=== PATIENT | male | born 2000 | race Caucasian/White ===

== ENCOUNTER → 2020-09-27 09:07 | Outpatient (BNVA) | payer OTHER, SELFPAY | PROVIDERS: Family Provider Family Medicine; PCP Family Medicine; Visit Provider Psychiatry & Neurology Psychiatry | DX: Z03.89 Encounter for observation for other suspected diseases and conditions ruled out (principal); Z79.899 Other long term (current) drug therapy; F31.9 Bipolar disorder, unspecified; F81.9 Developmental disorder of scholastic skills, unspecified | CPT/HCPCS: 80053; 80061; 83036; 84443; 85025 ==

== ENCOUNTER 2021-05-03 20:32 | Inpatient (IN) | payer SELFPAY ==
[2021-05-03 20:39] VITALS: BP 143/51; PULSE 110; RESP 18; TEMP 36.8; O2SAT 98; BMI 30.4
--- NOTE | 2021-05-03 20:45 | ECG_ITS ---
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 Measurements Intervals [place] Rate: 104 P: 37 IL: 150 QRS: 35 QRSD: 89 T: 8 QT: 291 QTc: 384 Interpretive Statements SINUS TACHYCARDIA NONSPECIFIC T-WAVE ABNORMALITY ABNORMAL RHYTHM ECG Compared to ECG 03/22/2018 23:00:24 T-wave abnormality now present Sinus rhythm no longer present Electronically Signed On 05-04-2021 20:03:35 TEST EXAMINER by Mike Morrison M.D. [id number]
--- NOTE | 2021-05-03 21:10 | W.ED.PSYCHS ---
HPI - Psych General: Chief Complaint: Psychiatric Symptoms Stated Complaint: SI Time Seen by Provider: 05/03/21 20:43 Source: patient and EMS Mode of arrival: EMS History of Present Illness: HPI Narrative: 21-year-old male presents emergency department chief complaint of suicidal thoughts and ideations patient has a known history of bipolar disorder but reports he been off his medication for quite some time he does report that he smoked a blunt of marijuana in with his girlfriend in which her his girlfriend ensued into argument with her mother in which the patient became feeling depressed and overwhelmed in which she was demonstrating suicidal thoughts. Patient reports she has a plan to slice her left wrist. The patient reports he is outpatient evaluation has been done through [facility]. Patient reports he has a prior history of cutting in the left wrist approxi-4 days ago he reports he has posted several medications that he has been noncompliant with. Patient reports no other associated symptoms or coingestions. MD complaint: suicidal ideation and feels depressed Onset (ago): day(s) (1) Associated symptoms: Deny depression Treatments prior to arrival: none If self harm: admits thoughts of self harm and has plan Review of Systems General: Reports: 10 or more systems reviewed and unremarkable except in HPI and below Const: Denies: fever(s), chills, fatigue or malaise Eyes: Denies: change in vision or blurry vision Card: Denies: chest pain or palpitations Resp: Denies: dyspnea or productive cough GI: Denies: abdominal pain, nausea or vomiting : Denies: flank pain Musc: Denies: extremity pain or extremity swelling Skin/Breast: Denies: rash or pruritus Neuro: Denies: headache(s) Psych: Reports: anxiety and mood swings; Denies: depression Ezra/Lymph: Denies: easy bleeding All/Imm: Denies: urticaria, throat swelling or facial swelling PFSH ED PFSH: Medical History (Updated 05/03/21 @ 22:27 by Junito Ledesma) Bipolar disorder, unspecified Intellectual delay Psychiatric care Social History (Updated 11/17/19 @ 13:02 by Fela Mosquera RN) Smoking and tobacco status: former smoker Current gender identity: Male Physical Exam Narrative: EXAM NARRATIVE: Patient appears alert oriented x3 appears in no obvious acute distress does not appear to be under influence of drugs no alcohol Const: COMMON NORMALS: no acute distress, patient oriented x3 and healthy appearing HENMT: COMMON NORMALS: normocephalic and atraumatic HEAD & SCALP: normocephalic and atraumatic Eye: COMMON NORMALS: Equal, round and reactive pupils present and EOMs intact bilaterally PUPIL: Yes Equal, round and reactive pupils present Neck/C-Spine: COMMON NORMALS: full ROM, supple and no JVD Lymph: LYMPHATIC: no lymphadenopathy noted Chest: COMMONS NORMALS: normal inspection of the chest and normal palpation of entire chest wall Resp: COMMON NORMALS: normal respiratory effort, No retractions and clear to auscultation bilaterally EFFORT & INSPECTION: Yes able to speak in complete sentences and Yes symmetric chest movement AUSCULTATION: clear to auscultation bilaterally Cardio: COMMON NORMALS: no JVD, regular rate and regular rhythm RATE: regular rate RHYTHM: regular rhythm GI: COMMON NORMALS: Normal to inspection, nondistended, normoactive bowel sounds present, Soft to palpation and non-tender INSPECTION: Yes normal to inspection PALPATION: Yes Soft to palpation : COMMON NORMALS: Yes no CVA tenderness BLADDER/KIDNEY EXAM: Yes no CVA tenderness Back/Pelvis: COMMON NORMALS: no CVA tenderness Extremity: COMMON NORMALS: normal to inspection and full ROM Neuro: COMMON NORMALS: patient oriented x3, CN's II-XII intact bilaterally, moves all extremities and no focal motor deficits Psych: COMMON NORMALS: mental status grossly normal, Normal thought process present, cooperative, normal affect and speech normal SPEECH: Yes normal speech and Yes excessive THOUGHT PROCESS: Normal thought process present THOUGHT CONTENT: Yes Suicidality present Skin: COMMON NORMALS: no rashes or lesions noted GENERAL SKIN EXAM: no rashes or lesions noted Face to Face: Restrn/Seclusion Events leading up to initiation: Verbalizing threat to self or others Course ED course: Due to the patient's symptoms and condition will be doing medical clearance for psychiatric intake will be contacting the psychiatrist upon his labs returning. Patient davonte in stable condition this time appears nontoxic appears in no obvious acute distress. He does voice suicidal thoughts in which his plan is to cut his wrist and end his life. Patient reports no other associated symptoms. Vital Signs: Vital signs: Vital Signs Temperature 98.2 F 05/03/21 20:39 Pulse Rate 110 H 05/03/21 20:39 Respiratory Rate 18 05/03/21 20:39 Blood Pressure 143/51 05/03/21 20:39 Pulse Oximetry 98 05/03/21 20:39 MDM - Psych MDM Narrative: Medical decision making narrative: Patient is been found medically cleared for psychiatric placement and is taking 2 the on-call psychiatrist is granted acceptance to the behavioral health floor. The patient remains in stable condition at this time. Lab Data: Labs: Lab Results 05/03/21 05/03/21 05/03/21 20:11 20:11 21:14 WBC 8.7 10^3/uL 10^3/ uL (4.0-10.0) RBC 5.35 10^6/uL H 10 ^6/uL (4.1-5.3) Hgb 15.5 g/dL g/dL (11.7-16.6) Hct 44.5 % % (42.0-52.0) MCV 83.2 fl fl (80-94) MCH 29.0 pg pg (28.0-34.0) MCHC 34.8 g/dL g/dL (30.0-36.0) RDW 12.5 % % (12.1-15.1) Plt Count 236 10^3/cmm 10^3 /cmm (130-400) MPV 9.2 fL fL (7.4-10.4) Neut % (Auto) 68.2 % % Lymph % (Auto) 21.0 % % Banner % (Auto) 9.2 % % Eos % (Auto) 0.9 % % Baso % (Auto) 0.6 % % Neut # (Auto) 5.94 10^3/uL 10^3 /uL (1.8-7.7) Lymph # (Auto) 1.8 10^3/uL 10^3/ uL (0.8-4.8) Banner # (Auto) 0.8 10^3/uL 10^3/ uL (0.2-0.9) Eos # (Auto) 0.1 10^3/uL 10^3/ uL (0.0-0.8) Baso # (Auto) 0.1 10^3/uL 10^3/ uL (0.0-0.1) Nucleated RBC % (a uto) 0 % % Nucleated RBCs # 0.0 /100WBC /100W BC Sodium Potassium Chloride Carbon Dioxide Anion Gap BUN Creatinine GFR Calculation Glucose Calculated Osmolal ity Calcium Total Bilirubin AST ALT Alkaline Phosphata se Total Protein Albumin Globulin TSH Urine Color Yellow (Yellow) Urine Appearance Clear (CLEAR) Urine pH 5 (5-7) Ur Specific Gravit y 1.020 (1.005-1.030) Urine Protein Neg (Negative) Urine Glucose (UA) Norm (Normal) Urine Ketones Negative (Negative) Urine Blood Neg (Negative) Urine Nitrate Negative (Negative) Urine Bilirubin Neg (Negative) Urine Urobilinogen Norm mg/dL mg/dL (Negative) Ur Leukocyte Luli ase Negative (Negative) Salicylates Urine Opiates Scre en Negative ng/mL ng /mL (Negative) Acetaminophen Ur Barbiturates Sc reen Negative ng/mL ng /mL (Negative) Ur Phencyclidine S crn Negative ng/mL ng /mL (Negative) Ur Amphetamines Sc reen Negative ng/mL ng /mL (Negative) U Benzodiazepines Scrn Negative ng/mL ng /mL (Negative) Urine Cocaine Scre en Negative ng/mL ng /mL (Negative) U Marijuana (THC) Screen Positive ng/mL H ng/mL (Negative) Ethyl Alcohol 05/03/21 21:14 WBC RBC Hgb Hct MCV MCH MCHC RDW Plt Count MPV Neut % (Auto) Lymph % (Auto) Banner % (Auto) Eos % (Auto) Baso % (Auto) Neut # (Auto) Lymph # (Auto) Banner # (Auto) Eos # (Auto) Baso # (Auto) Nucleated RBC % (a uto) Nucleated RBCs # Sodium 137 mmol/L mmol/L (136-145) Potassium 3.7 mmol/L mmol/L (3.5-5.1) Chloride 102 mmol/L mmol/L (98-107) Carbon Dioxide 21 mmol/L L mmol/ L (22-29) Anion Gap 17.7 (5-19) BUN 16 mg/dL mg/dL (6-20) Creatinine 0.6 mg/dL L mg/dL (0.7-1.2) GFR Calculation 168.5 mL/min H mL /min (90-130) Glucose 77 mg/dL mg/dL (65-115) Calculated Osmolal ity 284 mOsm/kg L mOs m/kg (285-295) Calcium 9.9 mg/dL mg/dL (8.5-10.5) Total Bilirubin 0.4 mg/dL mg/dL (0.15-1.2) AST 19 U/L U/L (0-40) ALT 20 U/L U/L (0-41) Alkaline Phosphata se 76 IU/L IU/L (40-130) Total Protein 7.2 g/dL g/dL (6.6-8.7) Albumin 4.8 g/dL g/dL (3.5-5.2) Globulin 2.4 g/dL g/dL (1.3-4.6) TSH 4.53 uIU/mL H uIU /mL (0.27-4.20) Urine Color Urine Appearance Urine pH Ur Specific Gravit y Urine Protein Urine Glucose (UA) Urine Ketones Urine Blood Urine Nitrate Urine Bilirubin Urine Urobilinogen Ur Leukocyte Luli ase Salicylates < 0.3 mg/dL L mg/ dL (3-10) Urine Opiates Scre en Acetaminophen < 5.0 ug/mL L ug/ mL (10-30) Ur Barbiturates Sc reen Ur Phencyclidine S crn Ur Amphetamines Sc reen U Benzodiazepines Scrn Urine Cocaine Scre en U Marijuana (THC) Screen Ethyl Alcohol < 10 mg/dL mg/dL (0-10) Discharge Plan Discharge Patient Disposition: Admitted As Inpatient Clinical Impression: Bipolar disorder, unspecified, Suicidal ideation Condition: Stable Prescriptions: No Action aripiprazole [Abilify] 10 mg tablet 10 mg PO QAM 30 Days Qty: 30 RF: 3 lamotrigine [Lamictal] 100 mg tablet 50 mg PO BID 30 Days Qty: 30 RF: 3 mirtazapine 15 mg tablet 15 mg PO .QHS 30 Days Qty: 30 RF: 3 Referrals: Yanely Mercado DO [Primary Care Provider] - Coding Level of Care Code ED Pediatric Allergist for Yasmanig Fwd Exam Comprehensive
[2021-05-03 21:24] LABS: Basophils # 0.1 10^3/uL (0.0-0.1); Basophils % 0.6 %; Eosinophils # 0.1 10^3/uL (0.0-0.8); Eosinophils % 0.9 %; Hematocrit 44.5 % (42.0-52.0); Hemoglobin 15.5 g/dL (11.7-16.6); Lymphocytes # 1.8 10^3/uL (0.8-4.8); Mean Corpuscular HGB Conc 34.8 g/dL (30.0-36.0); Mean Corpuscular Volume 83.2 fl (80-94); Mean Platelet Volume 9.2 fL (7.4-10.4); Monocytes # 0.8 10^3/uL (0.2-0.9); Monocytes % 9.2 %; Neutrophils # 5.94 10^3/uL (1.8-7.7); Neutrophils % 68.2 %; Nucleated Red Blood Cells % 0 %; Platelet Count 236 10^3/cmm (130-400); Red Blood Count 5.35 10^6/uL (4.1-5.3); Red Cell Distribution Width 12.5 % (12.1-15.1); White Blood Count 8.7 10^3/uL (4.0-10.0)
[2021-05-03 21:45] LABS: Add Urine Microscopic? NO; Charge for UA Resulting for Rev
[2021-05-03 21:59] LABS: Alanine Aminotransferase 20 U/L (0-41); Albumin Level 4.8 g/dL (3.5-5.2); Alkaline Phosphatase 76 IU/L (40-130); Anion Gap 17.7 (5-19); Aspartate Amino Transferase 19 U/L (0-40); Blood Urea Nitrogen 16 mg/dL (6-20); Calcium 9.9 mg/dL (8.5-10.5); Carbon Dioxide 21 mmol/L (22-29); Chloride 102 mmol/L (98-107); Globulin 2.4 g/dL (1.3-4.6); Glomerular Filtration Rate 168.5 mL/min (90-130); Glucose 77 mg/dL (65-115); Osmolality Calculated 284 mOsm/kg (285-295); Potassium 3.7 mmol/L (3.5-5.1); Sodium 137 mmol/L (136-145); Thyroid Stimulating Hormone 4.53 uIU/mL (0.27-4.20); Total Bilirubin 0.4 mg/dL (0.15-1.2); Total Protein 7.2 g/dL (6.6-8.7)
[2021-05-03 22:00] LABS: Acetaminophen < 5.0 ug/mL (10-30); Alcohol Level < 10 mg/dL (0-10); Salicylate < 0.3 mg/dL (3-10)
[2021-05-03 22:06] LABS: Bilirubin Urine Neg (Negative); Blood Urine Neg (Negative); Glucose Urine UA Norm (Normal); Ketones Urine Negative (Negative); Leukocyte Esterase Urine Negative (Negative); Nitrate Urine Negative (Negative); Protein Urine Neg (Negative); Urine Appearance Clear (CLEAR); Urine Color Yellow (Yellow); Urobilinogen Urine Norm (Negative); pH Urine 5 (5-7)
[2021-05-03 22:12] LABS: Amphetamines Screen Urine Negative (Negative); Barbiturates Screen Urine Negative (Negative); Benzodiazepines Screen Urine Negative (Negative); Cocaine Screen Urine Negative (Negative); Opiate Screen Urine Negative (Negative); PCP Screen Urine Negative (Negative); THC Screen Urine Positive (Negative)
[2021-05-04 00:25] VITALS: BP 119/68; PULSE 66; RESP 18; TEMP 36.4; O2SAT 98
[2021-05-04] MEDS: mirtazapine 15 mg Tablet PO ×2 (00:45→20:37)
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
[2021-05-04 05:50] VITALS: BP 119/68; PULSE 66; RESP 18; TEMP 36.4; BMI 30.4
[2021-05-04 06:57] VITALS: BP 101/57; PULSE 84; RESP 20; TEMP 36.6; O2SAT 98
[2021-05-04] MEDS: ARIPiprazole 10 mg Tablet PO (07:33)
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
[2021-05-04 14:00] VITALS: BP 112/61; PULSE 91; RESP 18; TEMP 37.1; O2SAT 97
[2021-05-04] MEDS: lamoTRIgine 25 mg Tablet PO (20:37)
[2021-05-04 20:41] VITALS: BP 135/89; PULSE 90; RESP 17; TEMP 36.6; O2SAT 96
[2021-05-05] MEDS: ARIPiprazole 10 mg Tablet PO (05:50)
[2021-05-05 06:00] VITALS: BP 103/65; PULSE 79; RESP 18; TEMP 36.6; O2SAT 96
--- NOTE | 2021-05-05 12:22 | P.NPUPN_ITS ---
Subjective NPU Subjective: Interval history: He says that he is doing well. He has noticed that his appetite has increased significantly with the Remeron. He ate four bowls of grits this morning and could have still eaten more. His mood is fairly good. He slept well last night with the Remeron. He agreed to change to Zoloft and trazodone as an antidepressant and sleep aid. He does not want to have such an increased appetite. He promises to follow through on getting therapy and be compliant with his medications. Mental Status Exam 2 MSE Comments: This is a 21-year-old overweight male who appears approximately his stated age in no acute distress. He is dressed in hospital scrubs with fair grooming. He was pleasant and cooperative with the evaluation. psychomotor activity decreased. Speech is at a regular rate and rhythm, normal volume, good articulation, not pressured. Alert, oriented X3 Attention and concentration intact. Memory is intact Mood is good. Affect is euthymic. Thought process is logical and goal-directed. Thought content: Denies auditory and visual hallucinations. No delusions or paranoia are noted. No current suicidal ideation, and no homicidal ideation. Fund of knowledge is average. Insight and judgment appear to be appears to be fairly good. Impulse control is appears to be good. Cognition: Patient Appearance: Appropriate Level of Consciousness: Awake, Alert and Appropriate Patient Cognition Impaired: No Ability to Follow Directions: Excellent Patient Orientation (long list): Person, Place, Time, Name, Age, Birthday and Day of Week Comprehension Ability: No Impairment Hallucination Type: None Delusion Description: Not Present Thought Process: Appropriate Affect: Affect Description: Appropriate Behavior: Patient Behavior: Appropriate Speech Pattern: Appropriate Vitals/I&O/Wt Last Vital Signs Temp 97.9 F 05/05/21 06:00 Pulse 79 05/05/21 06:00 Resp 18 05/05/21 06:00 BP 103/65 05/05/21 06:00 Pulse Ox 96 05/05/21 06:00 Weight last 48 hrs Weight 96.162 kg Weight 96.162 kg Data NPU : 05/03/21 21:14 05/03/21 21:14 A&P Assessment and plan (1) Suicidal ideation: Status: Acute (2) Intellectual delay: Status: Acute (3) Bipolar disorder, unspecified: Status: Acute Qualifiers: Active/Remission status: currently active Current bipolar episode type: depressed Current episode severity: severe Psychotic features: without psychotic features Qualified Code(s): F31.4 - Bipolar disorder, current episode depressed, severe, without psychotic features Additional A&P Information This is a 21-year-old male with a history of bipolar disorder who has been noncompliant with his medications for about 1 year and had a sudden onset of depression and suicidal ideation brought on by situation. Plan: 1. Continue Abilify 10 mg at Lamictal 25 mg daily. Discontinue Remeron and changed to Zoloft 50 mg and trazodone as needed for sleep. 2. Continue every 15 minute checks for safety. 3. Encourage individual, group and milieu therapies. 4. Encourage sober living treatment after discharge at the highest level of care to which he is willing to commit. 5. We will monitor for safety for himself in the community prior to discharge. Involuntary Hold Information 96 Hour Hold: 96 Hour Involuntary Admission: No Attestations NPU Medical Necessity Statement*: Inpatient hospitalization is medically necessary and the clinically appropriate intervention at this time. We will initiate medications and make changes as indicated. Coding Level of Care Code Acute Home Health Clinical Liaison for aden Fwd Diagnoses Suicidal ideation R45.851 Intellectual delay F81.9 Bipolar disorder, unspecified F31.4 Active/Remission status: currently active Current bipolar episode type: depressed Current episode severity: severe Psychotic features: without psychotic features
[2021-05-05 13:53] VITALS: BP 114/66; PULSE 86; RESP 18; TEMP 36.7; O2SAT 97
[2021-05-05] MEDS: sertraline 50 mg Tablet PO (20:09)
[2021-05-05] MEDS: lamoTRIgine 25 mg Tablet PO (20:09)
[2021-05-05 20:27] VITALS: BP 120/64; PULSE 78; RESP 18; O2SAT 95
[2021-05-06 06:00] VITALS: BP 118/69; PULSE 84; RESP 16; TEMP 36.1; O2SAT 96
[2021-05-06] MEDS: ARIPiprazole 10 mg Tablet PO (08:07)
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
[2021-05-06 09:32] VITALS: BP 118/69; PULSE 84; RESP 16; TEMP 36.1; O2SAT 96
== END 2021-05-06 13:23 | disposition home or self-care (01) | DRG 885 ==
LOC: ER 22:27 → NP 22:45
PROVIDERS: Admitting Provider Psychiatry & Neurology Psychiatry; Emergency Provider Emergency Medicine; PCP Family Medicine; Visit Provider Psychiatry & Neurology Psychiatry
DX: F31.4 Bipolar disorder, current episode depressed, severe, without psychotic features (principal); R45.851 Suicidal ideations; Z91.128 Patient's intentional underdosing of medication regimen for other reason; Z87.891 Personal history of nicotine dependence
CPT/HCPCS: 80053; 80306; 80307; 81003; 84443; 85025; 93005; 97150; 97165; 99285